=== PATIENT | female | born 1970 | race Caucasian/White ===

== ENCOUNTER 2019-09-25 10:52 | Inpatient (IN) | payer BC ==
[~2019-09-25] VITALS: Ht 172.7 cm; Wt 113.0 kg
[~2019-09-25 10:52] MED LIST: BENADRYL25 M1 OR; BUPROPION150 M4 PO; ENBREL50 MG/ML SC; FLECAINIDE ACE100 MG PO; FLUOXETINE40 MG PO; FOLIC ACID1 MG PO; LEVSIN0.125 MG PO; LORCET HD 10-321 TAB PO; LORTAB 5 OR; LORTAB 7.5 PO; LORTAB5 OR; METHOTREXATE25 MG/ML IJ; METO50TA52 PO; PREDNISONE5 MG PO; PREVACID30 M2 PO; PROMETHAZINE25 MG PO; RELPAX20 MG PO; RITUXAN500 MG IV; SERTRALINE50 MG PO; TOPROL XL25 M1 PO; WELLBUTRIN150 M1 PO; XANAX0.5 MG PO
--- NOTE | 2019-09-25 11:08 | NUR ---
PT ARRIVED TO UNIT VIA WHEELCHAIR WITH SPOUSE DIRECT ADMIT FROM DR. HURST'S OFFICE IN STABLE CONDITION; VS WNL; AMBULATES WITH CANE. SPO2 95% ON ROOM AIR. PT AFEBRILE; REPORTS TEMP OF 102.0 AT OFFICE AND STATES THAT SHE TOOK TYLENOL. ALERT AND ORIENTED X 3. RESPIRTIONS EVEN AND UNLABORED ON ROOM AIR. C/O 8/10 RIGHT SIDED BACK PAIN; PT HAS FACIAL GRIMACING AND LEANING OVER WITH GUARDING. ALSO C/O NAUSEA. ORIENTED TO ROOM AND CALL LIGHT SYSTEM. PLAN OF CARE DISCUSSED. PT ENCOURAGED TO VERBALIZE CONCERNS. STATES UNDERSTANDING. SAFETY MEASURES IN PLACE. CALL LIGHT WITHIN REACH.
[2019-09-25 11:10] VITALS: BP 131/79
[2019-09-25 11:37] LABS: IMMATURE GRANULOCYTES 0.5 % (0.0-5.0); MEAN CELL VOLUME 89.2 fL CALC (80.0-100.0); MEAN CORPUSCULAR HGB 28.9 pG CALC (26.0-32.0); MEAN CORPUSCULAR HGB CONC 32.3 g/dL CAL (32.0-36.0); NEUT# 4.44 thou/uL (2.00-7.15); RED BLOOD COUNT 4.54 mill/uL (4.20-5.60); RED CELL DISTRI WIDTH 15.2 % (11.5-15.5)
[2019-09-25 11:38] LABS: HEMATOCRIT 40.5 % (37.0-47.0); HEMOGLOBIN 13.1 g/dl (12.0-16.0)
[2019-09-25 11:49] LABS: ALBUMIN 4.1 g/dL (3.2-5.0); ALKALINE PHOSPHATASE 91 u/l (38-126); BILIRUBIN, TOTAL 0.5 mg/dL (0.0-1.4); BUN 14 mg/dL (7-17); BUN/CREATININE RATIO 19 (12-20 (CALC)); CARBON DIOXIDE 24 mmol/l (22-30); CHLORIDE 104 mmol/l (95-108); CREATININE 0.8 mg/dL (0.5-1.0); GFR > 60 ML/MIN (>=60 (CALC)); GFR FOR AFR.AMER. > 60 ML/MIN (>=60 (CALC)); SODIUM 138 mmol/l (137-146); TOTAL PROTEIN 6.8 g/dL (6.3-8.2)
[2019-09-25 11:57] LABS: ANION GAP 14 (6-22 (CALC)); POTASSIUM 3.5 mmol/l (3.5-5.1); SGOT/AST 60 u/l (14-36)
--- NOTE | 2019-09-25 11:57 | NUR ---
IV SITE STARTED TO LAC; FLUIDS INITIATED. ZOSYN AND DILAUDID GIVEN FOR NAUSEA AND PAIN. FIRST DOSE OF GASTROGRAFIN ADMINISTERED.
--- NOTE | 2019-09-25 13:05 | NUR ---
LAST DOSE OF ORAL CONTRAST ADMINISTERED. RADIOLOGY NOTIFIED.
--- NOTE | 2019-09-25 14:00 | NUR ---
PT OFF UNIT VIA WHEELCHAIR FOR CT OF ABDOMEN. MEDICATED WITH DILAUDID AND PHENERGHAN PRIOR TO TRANSPORT. REMAINS IN ROOM.
--- NOTE | 2019-09-25 14:45 | NUR ---
PT BACK TO ROOM AND RESTING IN BED. MEDICATION EFFECTIVE FOR PAIN AND NAUSEA.
[2019-09-25] MEDS ORDERED: SERTRALINE25 MG PO ×2 (15:43→15:45)
[2019-09-25] MEDS ORDERED: SERTRALINE50 MG PO (15:44)
[2019-09-25] MEDS ORDERED: BUPROPION150 M4 PO (15:46)
[2019-09-25] MEDS ORDERED: FLECAINIDE100 MG PO (15:47)
[2019-09-25] MEDS ORDERED: ANASPAZ0.125 MG PO (15:48)
[2019-09-25] MEDS ORDERED: OTREXUP10 MG/0.4 XX (15:50)
[2019-09-25] MEDS ORDERED: VITAMIN C1000 MG PO (15:51)
[2019-09-25] MEDS ORDERED: ATROVENT H17 MCG/ACT PO (15:52)
[2019-09-25] MEDS ORDERED: MULTI VIT PO (15:52)
[2019-09-25] MEDS ORDERED: ALPRAZOLAM0.5 MG PO (15:52)
[2019-09-25 16:10] VITALS: BP 107/62
[2019-09-25 18:40] VITALS: BP 138/78
--- NOTE | 2019-09-25 19:26 | NUR ---
PERCOCET GIVEN FOR PAIN. PT AMBULATED INTO BATHROOM INDEPENDENTLY TO VOID CLEAR YELLOW URINE.
--- NOTE | 2019-09-25 19:45 | NUR ---
IN WITH NIGHT TIME DENTAL EQUIPMENT TECHNICIAN AND REVIEWING NO OVERNIGHT STAY FOR VISITORS WITH AND PT. AFTER EXPLAINING PROTOCOL NUMEROUS TIMES, PT'S IS NOW WILLING TO LEAVE.
--- NOTE | 2019-09-25 20:14 | NUR ---
AT BEDSIDE LEAVING AT THIS TIME NOW THAT PT. IS BEING GIVEN NIGHT TIME MEDS. PT. CONTINUES TO C/O RIGHT SIDED ABD PAIN AND MEDICATED WITH ORDERED PRN DILAUDID; WILL REASSESS. IV SITE PATENT AND ORDERED IVF INFUSING WELL. ASSESSMENT COMPLETED. DENIES FURTHER NEEDS. ENCOURAGED TO CALL FOR ANY NEEDS. CALL LIGHT IS IN REACH.
--- NOTE | 2019-09-25 22:22 | NUR ---
PT. CONTINUES TO C/O ABD PAIN AND MEDICATED WITH ORDERED PRN DIALUDID PER ORDER AND PT. REQUESTS.WILL REASSESS. DENIES FURTHER NEEDS.
[2019-09-25 23:38] VITALS: BP 126/69
--- NOTE | 2019-09-25 23:45 | NUR ---
PT. CONTINUES TO C/O PAIN 09/17 AND SLIGHTLY ANXIOUS; MEDICATED WITH ORDERED PRN PERCOCET AND XANAX; WILL REASSESS. REMINDED OF NPO STATUS AFTER MIDNIGHT. SNACK PROVIDED AT THIS TIME.
--- NOTE | 2019-09-26 01:05 | NUR ---
DENIES NEEDS. RESTING IN BED. ALL PO FLUIDS REMOVED FROM BEDSIDE.
[2019-09-26 03:30] VITALS: BP 137/79
--- NOTE | 2019-09-26 04:15 | NUR ---
PT. GIVEN AN INCENTIVE SPIROMETER AND EDUCATION GIVEN. PT. ABLE TO PULL [phone] AND GOAL SET TO 1500. PT. DENIES FURTHER NEEDS.
--- NOTE | 2019-09-26 07:15 | NUR ---
REPORT RECEIVED FROM CARLTON FREEDMAN. PT RESTING IN BED ON RIGHT SIDE WITH AT BEDSIDE; ALERT AND ORIENTED. C/O MODERATE ABDOMINAL PAIN. RESPIRATIONS EVEN AND UNLABROED ON ROOM AIR; SPO2 85-87%; PT ENCOURAGED TO TAKE DEEP BREATHS; INCREASED TO 93%. PT ALSO REPORTS A HEADAHCE 10/17; PT STATES THAT PERCOCET GIVES HER HEADACHES AND REQUESTS TO HAVE LORTAB INSTEAD. PT REMAINS NPO FOR SCHEDULED CHOLECYSTECTOMY. IV FLUIDS INFUSING WITHOUT DIFFICULTY; IV SITE APPEARS HEALTHY. PLAN OF CARE REVIEWED. PT ENCOURAGED TO VERBALIZE CONCERNS. STATES UNDERSTANDING. SAFETY MEASURES IN PLACE. CALL LIGHT WITHIN REACH.
[2019-09-26 08:00] VITALS: BP 124/69
--- NOTE | 2019-09-26 09:30 | NUR ---
PERCOCET REPLACED WITH LORTAB AND LORTAB GIVEN AT THIS TIME.
--- NOTE | 2019-09-26 09:57 | NUR ---
PT screen. Patient would benefit from PT intervention if medical agrees
--- NOTE | 2019-09-26 10:04 | NUR ---
PT C/O FREQUENT DIARRHEA AND REQUESTS ANTIDIARRHEAL MEDICATION. STOOL SECIMEN COLLECTED AND SENT TO LAB AT THIS TIME TO RULE OUT INFECTION.
--- NOTE | 2019-09-26 10:15 | NUR ---
DR. RUIZ AT BEDSIDE TO DISCUSS PLAN OF CARE. HAS MANY QUESTIONS AN DCONCERNS REGARDING PT STATUS AND HER ANXIETY; QUESTIONS ANSWERED TO SATISFACTION.
--- NOTE | 2019-09-26 10:45 | NUR ---
DR. HURST AT BEDSIDE; INFORMED PT THAT DUE TO SYMPTOMS OF COVID19 INCLUDING FEVERS AND CT RESULTS THAT HE REQUIRES A NEGATIVE COVID SWAB RESULT TO PERFORM SURGERY DUE TO RISKS; DISUCSSED IN DEPTH WITH PT. ORDERED HIDA SCAN INPATIENT.
[2019-09-26 10:48] LABS: C. DIFFICILE TOXIN A&B NEGATIVE (NEGATIVE)
--- NOTE | 2019-09-26 11:00 | NUR ---
PT AND INFORMED OF REQUIRED MOVE TO THE [facility] AND NO VISITOR POLICY. PT VERBALIZED POSSIBLE WITH TO AMA IF CANNOT STAY AT BEDSIDE. INDICATION DISCUSSED AT LENGTH AND DR. RUIZ AGAIN AT BEDSIDE TO EXPLAIN BENEFITS OF STAYING AND ON AIRBORNE PRECAUTIONS. AND PATIENT VERY ANXIOUS; PATIENT IS TEARFUL. PT RIGHTS ALSO EXLAINED.
--- NOTE | 2019-09-26 12:21 | NUR ---
COVID SWAB OBTAINED AND SENT TO LAB.
--- NOTE | 2019-09-26 12:35 | NUR ---
PT TRANSFERRED DOWN TO [facility] FOR HIDA SCAN VIA WHEELCHAIR WITH MEDSUR STAFF IN STABLE CONDITION.
--- NOTE | 2019-09-26 13:00 | NUR ---
DR. HURST ORDERED BIO RAPID COVID SWAB IN ORDER TO PERFORM CHOECYSTECTOMY TODAY.
--- NOTE | 2019-09-26 14:20 | NUR ---
LAB NOTIFIED NURSE OF PATIENTS POSITIVE COVID[address] HURST AND DR. RUIZ NOTIFIED. UPDATED. ORDERS TO CONTINUE FLUIDS AND ANTIBIOTICS. PT WILL NOT SURGERY TODAY.
--- NOTE | 2019-09-26 14:30 | NUR ---
PT ARRIVED BACK TO UNIT VIA WHEELCHAIR IN STABLE CONDITION. INFORMED OF POSITIVE COVID SWAB RESULTS. PT UPSET, BUT AGREEABLE TO STAYING IN HOSPITAL AND FOLLOWING VISIOR POLICY. ASSISTED TO BATHROOM FOR LOOSE INCONTINENT BOWEL MOVEMENT; PT AGAIN REQUESTS ANTI DIARRHEAL; STOOL NEGATIVE FOR CDIFF.
[2019-09-26 14:45] VITALS: BP 118/61
--- NOTE | 2019-09-26 14:52 | NUR ---
TRANSPORTED TO ROOM 285 AT THIS TIME WITH ALL BELONGINGS. LEFT BEDSIDE. PT NOW ON AIRBORNE/CONTACT PRECAUTIONS. REPORTS A NEW PRODUCTIVE COUGH; COUGHING FIT CAUSED MILD SOB WITH SPO2 IN THE 90'S. REMAINS ON ROOM AIR. ORIENTED TO NEW ROOM AND CALL LIGHT SYSTEM. PT SITTING UP ON EDGE OF BED WITH HEAD DOWN; C/O PAIN, NAUSEA, AND ANXIETY.
--- NOTE | 2019-09-26 16:21 | NUR ---
DILAUDID, ZOFRAN, XANAX, AND LOMOTIL GIVEN. IV FLUIDS INFUSING WITHOUT DIFFICULTY; IV SITE APPEARS HEALTHY. SAFETY MEASURES IN PLACE. CALL LIGHT WITHIN REACH.
[2019-09-26 19:45] VITALS: BP 144/60
--- NOTE | 2019-09-26 20:28 | NUR ---
ASSESSMENT COMPLETED. NO RESP. DISTRESS NOTED; IV SITE PATENT AND ORDERED IVF INFUSING WELL. PT. C/O ABD PAIN 10/17 AND MEDICATED WITH ORDERED PRN DILAUDID; WILL REASSESS. SNACK PROVIDED. DENIES FURTHER NEEDS AT THIS TIME. INSTRUCTED TO CALL FOR ANY NEEDS. CALL LIGHT IS IN REACH.
--- NOTE | 2019-09-26 22:38 | NUR ---
PT. C/O ABD PAIN, COUGH, AND NOTED WITH ANXIETY; MEDICATED WITH ORDERED PRN MEDS; SEE EMAR; WILL REASSESS. SNACK PROVIDED. CALL LIGHT IS IN REACH.
[2019-09-26 23:35] VITALS: BP 145/63
--- NOTE | 2019-09-27 01:32 | NUR ---
PT. C/O ABD PAIN AND NAUSEA AND MEDICATED WITH ORDERED PRN PHENERGAN AND DILAUDID PER ORDER AND PER PT'S REQUEST; WILL REASSESS. PT. IS EDUCATED ON PAIN MEDICATION FREQUENCIES AND TRYING TO ALTERNATE BETWEEN PO AND IV; VERBALIZES UNDERSTANDING. CALL LIGHT IS IN REACH.
[2019-09-27 04:02] VITALS: BP 126/58
--- NOTE | 2019-09-27 05:40 | NUR ---
NEW IV SITE STARTED TO RFA X1 ATTEMPT AND LAC IV REMOVED WITH CATHTER TIP INTACT. PT. MEDICATED WITH ORDERED PRN DILAUDID AND ZOFRAN FOR PAIN AND NAUSEA; WILL REASSESS. TEMP DOWN TO 99.4.
[2019-09-27 08:30] VITALS: BP 86/54
--- NOTE | 2019-09-27 08:30 | NUR ---
ASSESSMENT IS COMPLETED: IV SITE IS FREE FROM REDNESS OR EDEMA. HR IS REG,PULSES ARE STRONG X4, ABD IS SOFT WITH ACTIVE BS. BREATH SOUNDS ARE CLEAR BILATERALLY. NO C/O SOB. C/O ONLY OF ARTHRITIS PAIN. SPOKE WITH SPOUSE THIS AM.INQUIRED HOW SHE WAS DOING EXPLAINED SHE WAS FGINE DURING THE NIGHT AND CNAS ARE IN THE ROOM. CONTINUE TO OSBERVE AND MONITOR.
[2019-09-27 10:44] LABS: HEMATOCRIT 35.9 % (37.0-47.0); HEMOGLOBIN 11.2 g/dl (12.0-16.0); IMMATURE GRANULOCYTES 0.4 % (0.0-5.0); MEAN CELL VOLUME 92.5 fL CALC (80.0-100.0); MEAN CORPUSCULAR HGB 28.9 pG CALC (26.0-32.0); MEAN CORPUSCULAR HGB CONC 31.2 g/dL CAL (32.0-36.0); NEUT# 4.71 thou/uL (2.00-7.15); RED BLOOD COUNT 3.88 mill/uL (4.20-5.60); RED CELL DISTRI WIDTH 15.2 % (11.5-15.5)
--- NOTE | 2019-09-27 10:50 | NUR ---
GAVE PAIN MEDICATION AND NERVE NEDICATION TO PT REQUESTIING THE DILAUDID. EXPLAINED THAT NEED TO WAIT AT LEAST 45 MINUTES TO GIVE ORAL AND NERVE MEDICATION A CHANCE, SPOUSE CALLED AND INQUIRED WHY SHE WASN'T GETTING DILAUDID EXPLAINED WHAT WAS GIVEN AND WILL GIVE THE DILAUDID SOON EXPLAINED THAT HE BP WAS A LITTLE LOW AND IS BEING WATCHED, ALSO PT WANTS NAUSEA MEDICTION THAT WILL NE GIVEN AT THE SAME TIME. VERBALIZED UNDERSTANDING.
[2019-09-27 11:03] LABS: ALBUMIN 3.7 g/dL (3.2-5.0); ALKALINE PHOSPHATASE 67 u/l (38-126); ANION GAP 12 (6-22 (CALC)); BILIRUBIN, TOTAL 0.5 mg/dL (0.0-1.4); BUN 8 mg/dL (7-17); BUN/CREATININE RATIO 11 (12-20 (CALC)); CARBON DIOXIDE 28 mmol/l (22-30); CHLORIDE 101 mmol/l (95-108); CREATININE 0.7 mg/dL (0.5-1.0); GFR > 60 ML/MIN (>=60 (CALC)); GFR FOR AFR.AMER. > 60 ML/MIN (>=60 (CALC)); POTASSIUM 3.3 mmol/l (3.5-5.1); SGOT/AST 32 u/l (14-36); SODIUM 137 mmol/l (137-146); TOTAL PROTEIN 6.3 g/dL (6.3-8.2)
[2019-09-27 11:04] VITALS: BP 116/56
[2019-09-27 11:14] LABS: C-REACTIVE PROTEIN 14.4 mg/dL (0-0.9)
--- NOTE | 2019-09-27 12:00 | NUR ---
PT HAS BEEN RESTING IN BED WITH NO DISTRESS NOTED,
--- NOTE | 2019-09-27 14:27 | NUR ---
ATTEMPTING TO KEEP UP WITH PAIN MEDICATION FOR RELIEF. PT STATED: OK THANK YOU, IT WAS BAD THIS AM" PT IS CURRENTLY SNORING,
--- NOTE | 2019-09-27 14:47 | NUR ---
WILL LEAVE RECCOMENDATIONS IN THE CHART. FOR BLOOD WORK
[2019-09-27 15:57] VITALS: BP 124/66
--- NOTE | 2019-09-27 16:15 | NUR ---
PT WAS INT HE SHOWER WITH THE CNAS IN THE ROOM.,
--- NOTE | 2019-09-27 17:01 | NUR ---
PT'S ON THE PHONE REQUESTING TO SPEAK WITH THE FINISHING AND SHIPPING SUPERVISOR. PT REFUSES TO PUT THE TELE MONITOR BACK ON.
--- NOTE | 2019-09-27 17:05 | NUR ---
ATTEMPTED TO GIVE PT SOME LOMOTIL FOR LOOSE BM. PT WANTS TO TAKE HER OWN PEPTO BISMOL. EXPLAINED SHE SHOLDN'T TAKE IT DUE TO MEDICTIONS., REFUSES THE LOMOTIL. AND WANTS ME TO WRITE A NOTE.
--- NOTE | 2019-09-27 17:30 | NUR ---
PT REQUESTED SOMEONE TO CHECK THE IV SIT . IV WAS BEEPING WHEN CHECKING IT OUT IT IS KINKED ATTEMPTD TO UNKINK, PT SAID "OHIT HURTS" STOPPED THE PUMP AND CALLED STFF TO ASSIT WITH RETRYING THE IV SITE. CALLED FACTORY HAND TO ASSIST. ALSO TO INFORM OF ER WANTING TO SPEAK WITH HER., HAS SOME COMPLAINTS.
--- NOTE | 2019-09-27 17:30 | NUR ---
EXPLAINED TOT HE WOOD TURNING LATHE OPERATOR WHAT HAPPENED TODAY AND THAT THE WANTS TO SPEAK WITH HER., PT WAS INT HE SHOWER AND SHE FEELS EVERYONE LEFT HER. PT WAS SITTING ON THE TOILET AND WAS ASKED BY THE PICK OUT HAND RE: IF SHE WAS OK , SHE WANTED TO TAKE OUT DIRTY LINEN PT SAID YES. THEN PT GOT BACK INTO BED WITHOUT CALLING FOR ASSISTANCE. WHEN STAFF WENT IN SHE SAID :"I AM A FALL RISK AND EVERYONE LEFT ME". EXPLAINED THAT THE CNAS WERE IN THE ROOM.. PT ALSO REFUSE TO PUT THE TELE MONITOR BACK ON,
--- NOTE | 2019-09-27 18:00 | NUR ---
IV SITE RESTARTED BY POLINA VINCENT. WITH 1 ATTEMPT# [id number] RFA.
--- NOTE | 2019-09-27 18:30 | NUR ---
WEED CONTROL INSPECTOR CAME AND ASKED ANOTHER STAFF MEMBER TO TAKE OVER THE PT. DUE TO SPOUSE BEING UPSET. ALSO REQUESTED AN RN TO TAKE PT , AND ALSO ANOTHER NURSE FOR TOMORROW.
[2019-09-27 18:47] VITALS: BP 132/66
--- NOTE | 2019-09-27 20:00 | NUR ---
INSPECTOR CASING PRESENTS TO UNIT W/ LARGE STYROFOAM COOLER FILLED WITH SNACKS AND DRINKS, DROPPED OFF FOR PT BY . COOLER TAKEN TO ROOM BY OLIVIA GONZALES.
--- NOTE | 2019-09-27 21:05 | NUR ---
UPON ENTERING ROOM PT LAYING IN BED SUPINE/SEMI-FOWLERS, APPEARS COMFORTABLE AND IN NO DISTRESS. PHYSICAL ASSESMENT COMPLETE. PT REPORTS SOB AND COUGH, @ PRESENT PTS RESPIRATIONS ARE REGULAR AND UNLABORED. NO COUGH APPRECIATED. PT REPORTS R SIDE LOWER ABD PAIN THAT RADIATES TO BACK 11/17 AND GENERALIZED BODY PAIN 11/17. PT REPORTS NAUSEA W/O EMESIS. PT STATES HER DROPPED OFF THE FOOD BECAUSE SHE COULD NOT EAT HOSPITAL PROVIDED FOOD DUE TO "ARTIFICIAL SWEETENER" USED IN FOOD. WHEN ASKED REPORTS EATING HER OWN FOOD DID MAKE NAUSEA WORSE. SUGGESTED TO PT SHE TAKE A FEW HOURS OF BOWEL REST AND BE NPO EXCEPT SIPS OF CLEAR LIQUIDS. PT AGREES. PT MEDICATED FOR PAIN AND NAUSEA, SEE MAR. PLAN OF CARE REVIEWED. PT VERBALIZES UNDERSTANDING, DENIES QUESTIONS. ITEMS WITHIN REACH. BED LOCKED IN LOW POSITION W/ BEDRAILS UP X2. CALL KELLOGG WITHIN REACH, AGREES TO CALL PRN. ALL CONTACT/AIRBORNE PRECAUTIONS IN PLACE W/ NEGATIVE PRESSURE.
[2019-09-27 22:55] VITALS: BP 113/66
--- NOTE | 2019-09-28 00:25 | NUR ---
MEDICATED WITH PRN DILAUDID FOR PAIN, XANAX FOR ANXIETY, LOMOTIL FOR DIARRHEA PER PT'S REQUEST. SEE MAR. PT REPORTS PAIN SCALE 7/10 TO ABD RADIATING TO BACK AND GENERALIZED BODY PAIN. REPORTS ANXIETY AND DIARRHEA WELL. PT APPEARS DROWSY. CALL KELLOGG REMAINS WITHIN REACH, AGREES TO CALL PRN.
[2019-09-28 03:33] VITALS: BP 100/59
--- NOTE | 2019-09-28 04:45 | NUR ---
PT MEDICATED FOR PAIN 11/17, SEE MAR FOR ADMIN DETAILS AND F/U.
[2019-09-28 08:28] VITALS: BP 93/58
--- NOTE | 2019-09-28 08:28 | NUR ---
PT SITTING ON SIDE OF BED, NO SIGNS OF DISTRESS NOTED, RESP EVEN AND UNLABORED. DISCUSSED POC, PT VOICES NO NEEDS OR COMPLAINTS AT THIS TIME, DISCUSSED MEDICATIONS, METOPROLOL HELD AT THIS TIME. ASSESSMENT COMPLETED, CALL LIGHT IN REACH,CONTINUE TO MONITOR.
[2019-09-28 10:51] VITALS: BP 109/61
--- NOTE | 2019-09-28 11:58 | NUR ---
PT SITTING ON SIDE OF BED, NO SIGNS OF DISTRESS NOTED, RESP EVEN AND UNLABORED. PT C/O PAIN, MEDICATED WITH LORTAB, CALL LIGHT IN REACH,CONTINUE TO MONITOR.
--- NOTE | 2019-09-28 13:25 | NUR ---
PT RETURNED FROM BATHROOM, ASSISTED PT TO BED. PT C/O PAIN 10/10 STATES NO RELIEF FROM LORTAB AND THAT SHE NORMALLY TAKES 2 10/325'S AT HOME AND THAT BARELY TOUCHES HER PAIN. PT MEDICATED PER JUN. CALL LIGHT IN REACH,CONTINUE TO MONITOR.
[2019-09-28 15:50] VITALS: BP 119/67
--- NOTE | 2019-09-28 16:00 | NUR ---
PT RESTING IN BED, VITALS OBTAINED, PT VOICES NO NEEDS OR COMPLAINTS AT THIS TIME, CALL LIGHT IN REACH,CONTINUE TO MONITOR.
--- NOTE | 2019-09-28 18:03 | NUR ---
PT IN BATHROOM, ASSISTED PT BACK TO BED, NO SIGNS OF DISTRESS NOTED, RESP EVEN AND UNLABORED. PT SITTING ON SIDE OF BED DINNER TRAY PROVIDED. CALL LIGHT IN REACH,CONTINUE TO MONITOR.
[2019-09-28 19:19] VITALS: BP 102/50
[2019-09-28 23:50] VITALS: BP 107/64
[2019-09-29] VITALS (8 sets, daily range): BP systolic 119–158; BP diastolic 59–87
--- NOTE | 2019-09-29 01:30 | NUR ---
PT IN BED WITH EYES CLOSED. NO S/S OF DISTRESS. OXYGEN THERAPY ON FOR SOB ON EXERTION. RESIDENT HAS NON PRODUCTIVE COUGH NOTED. MEDICATED FOR PAIN AND EFFECTIVE. CONTINUES ON IV ABT WITH NO ADVERSE SIDE EFFECTS. RESIDENT ON VENTOLIN INHALER AND PT STATES IT HAS SOME EFFECTIVENESS. WILL CONTINUE TO OBSERVE RESIDENT.
--- NOTE | 2019-09-29 02:24 | NUR ---
PT UPTO BATHROOM WITH 1 PERSON ASSIST AND GAIT/BALANCE STEADY. MEDICATED FOR ABDOMINAL DISCOMFORT. CONTINUES ON TELEMETRY sr 75 WITH PAC'S. NO RESPIRATORY DISTRESS NOTED AND NO COUGHING NOTED AT THIS TIME. WILL CONTINUE TO OBSERVE.
[2019-09-29 06:31] LABS: HEMATOCRIT 31.7 % (37.0-47.0); HEMOGLOBIN 10.1 g/dl (12.0-16.0); IMMATURE GRANULOCYTES 0.8 % (0.0-5.0); MEAN CELL VOLUME 91.1 fL CALC (80.0-100.0); MEAN CORPUSCULAR HGB CONC 31.9 g/dL CAL (32.0-36.0); NEUT# 9.05 thou/uL (2.00-7.15); RED BLOOD COUNT 3.48 mill/uL (4.20-5.60); RED CELL DISTRI WIDTH 14.9 % (11.5-15.5)
--- NOTE | 2019-09-29 08:10 | NUR ---
PT RESTING IN BED, NO SIGNS OF DISTRESS NOTED, RESP EVEN AND UNLABORED. PT ALERT AND ORIENTED X3, DISCUSSED POC, DISCUSSED AM LABS PT AGREED TO ALLOW RAILROAD WHEELS AND AXLE INSPECTOR TO OBTAIN LABS. MEDICATED PER JUN. ASSESSMENT COMPLETED, PT ON 02 2L NC, CALL LIGHT IN REACH,CONTINUE TO MONITOR.
[2019-09-29 08:48] LABS: ANION GAP 12 (6-22 (CALC)); BUN 9 mg/dL (7-17); BUN/CREATININE RATIO 15 (12-20 (CALC)); C-REACTIVE PROTEIN 5.2 mg/dL (0-0.9); CARBON DIOXIDE 25 mmol/l (22-30); CHLORIDE 106 mmol/l (95-108); CREATININE 0.6 mg/dL (0.5-1.0); GFR > 60 ML/MIN (>=60 (CALC)); GFR FOR AFR.AMER. > 60 ML/MIN (>=60 (CALC)); POTASSIUM 3.6 mmol/l (3.5-5.1); SODIUM 139 mmol/l (137-146)
--- NOTE | 2019-09-29 08:55 | NUR ---
PT RESTING IN BED, MEDICATED FOR PAIN, O2 EXTENSION APPLIED. CALL LIGHT IN REACH,CONTINUE TO MONITOR.
--- NOTE | 2019-09-29 11:55 | NUR ---
IV ANTIBIOTIC JINA, DISCUSSED CT, PT AGREES STATES SHE WANTS TO WAIT UNTIL SHE HAS A NAP. CALL LIGHT IN REACH,CONTINUE TO MONITOR.
--- NOTE | 2019-09-29 14:10 | NUR ---
PT TAKEN DOWN TO RADIOLOGY FOR CT, ACCOMPANIED BY CHIEF DIGITAL MEDIA OFFICER. RETURNED TO ROOM PT VERY SOB ON EXERTION INCREASED O2 3L NC, CALL LIGHT IN REACH,CONTINUE TO MONITOR.
--- NOTE | 2019-09-29 20:35 | NUR ---
pt in bed with eyes open. able to make needs known. respirations are even and nonlabored. non productive cough noted. medications given and tolerated well. iv at kvo. lovenox given and no s/s of bleeding or hemorrhage. call light is within reach and bed i n lowest poskition. will continue to observe.
--- NOTE | 2019-09-30 01:53 | NUR ---
PT IN BED WITH EYES CLOSED. NO S/S OF RESPIRATORY DISTRESS NOTED. HAS NON PRODUCTIVE COUGH NOTED AND WAS MEDICATED WITH ROBITUSSIN PRESCRIBED. MEDICATED FOR ABDOMINAL AND RIB PAIN EFFECTIVE. IV FLUSHED WITH NO COMPLICATIONS. RESIDENT IS CONTINENT OF BOWEL AND BLADDER AND ABLE TO AMULATE WITH STANDBY ASSIST. ZOFRAN GIVEN FOR NAUSEA AND EFFECTIVE. CALL LIGHT WITHIN REACH AND BED IN LOWEST POSITION. WILL CONTINUE TO OBSERVE.
[2019-09-30 04:26] VITALS: BP 159/79
[2019-09-30 04:35] VITALS: BP 158/79
--- NOTE | 2019-09-30 04:56 | NUR ---
pt in bed with eyes open. able to verbalize needs. complained of discomcort in chest area from coughing and rib area. Resident was medicated with Dilaudid 1 gm and tolerated well. resident joan johnson liquid diet orderd but noncompliant with diet. noted eating chips and other snacks that brought in to her. Resident is continent of b/b and ambulates to otilet with no assist needed. continues IV ABT therapy. resident contunes with cough and non productive. Oxygen therapy in place and o2 sat 98% 3lnc. Will cotninue to observe. call light within reach and bed in lowest position.
[2019-09-30 10:01] VITALS: BP 174/91
[2019-09-30 11:02] VITALS: BP 181/93
[2019-09-30] MEDS ORDERED: DEXAMETHASON6 MG PO (11:57)
[2019-09-30] MEDS ORDERED: BIOTUSSIN PO (11:58)
[2019-09-30] MEDS ORDERED: AMOX/K CLAV875 M1 PO (12:01)
--- NOTE | 2019-10-02 13:04 | NUR ---
Pneumonia post discharge follow up call performed 10/02/19, Pt. is improving, less O2 dependent each day. Discharge meds were obtained and are being taken without issue. Tele Health appt scheduled with PCP on Monday, 10/03. No questions or needs at this time. Grateful for care received.
== END 2019-09-30 16:50 | disposition home or self-care (01) | DRG 177 ==
LOC: MS2 10:52
PROVIDERS: Nurse Practitioner Family; ADMIT Surgery; ATTEND Internal Medicine
DX: U07.1 COVID-19 (principal); J12.89 Other viral pneumonia; K81.9 Cholecystitis, unspecified; I10 Essential (primary) hypertension; K21.9 Gastro-esophageal reflux disease without esophagitis; I49.1 Atrial premature depolarization; I49.3 Ventricular premature depolarization; M06.9 Rheumatoid arthritis, unspecified; F32.9 Major depressive disorder, single episode, unspecified; Z79.52 Long term (current) use of systemic steroids
CPT/HCPCS: A9537; J1650; J2805; Q3014; Q9967